=== PATIENT | female | born 1990 | race African-American/Black ===

== ENCOUNTER 2016-12-06 18:47 | Emergency (ER) | payer MEDICAID, OTHER ==
[~2016-12-06] VITALS: Ht 165.1 cm; Wt 62.7 kg
[~2016-12-06 18:47] MED LIST: hydrocodone PO; ibuprofen PO; penicillin PO
[2016-12-06] MEDS ORDERED: PREN-154 PO (18:57)
[2016-12-06 19:23] LABS: BASOPHILS % (AUTO) 0.5 % (0.0-2.0); EOSINOPHILS % (AUTO) 3.3 % (1.0-6.0); HEMATOCRIT 39.6 % (36-46); HEMOGLOBIN 13.4 g/dL (12.0-16.0); LYMPHOCYTES # (AUTO) 2.9 K/uL (1.0-4.8); MEAN CORPUSCULAR HEMOGLOBIN 29.3 pg (26.0-34.0); MEAN CORPUSCULAR HGB CONC 33.8 G/dL (31.0-37.0); MEAN CORPUSCULAR VOLUME 87 fL (80-100); MONOCYTES % (AUTO) 14.9 % (2.0-9.0); NEUTROPHILS # (AUTO) 2.7 K/uL (1.8-7.7); NEUTROPHILS % (AUTO) 39.3 % (40.0-70.0); PLATELET COUNT (AUTO) 166 K/uL (150-450); RED BLOOD CELL COUNT(AUTO) 4.57 MIL/uL (4.00-5.20); RED CELL DISTRIBUTION WIDTH 13.3 % (11.5-14.5); WHITE BLOOD COUNT (AUTO) 6.8 K/uL (4.5-11.0)
[2016-12-06 19:38] LABS: ANION GAP 10 mmol/L (8-16); CARBON DIOXIDE 27 mmol/L (22-29); CHLORIDE 103 mmol/L (98-107); GLOMERULAR FILTR. RATE CALC > 60 mL/min (>60); POTASSIUM 3.8 mmol/L (3.5-5.1); SODIUM SERUM 140 mmol/L (136-145); UREA NITROGEN, BLOOD 5 mg/dL (7-18)
[2016-12-06 19:42] LABS: ALANINE AMINOTRANSFERASE 19 U/L (12-78); ALBUMIN 3.7 g/dL (3.4-5.0); ASPARTATE AMINOTRANSFERASE 18 U/L (15-37); BILIRUBIN,TOTAL 0.2 mg/dL (0.1-1.0); TOTAL PROTEIN, SERUM 7.4 g/dL (6.4-8.2)
[2016-12-06 19:59] LABS: APPEARANCE,URINE CLEAR (CLEAR); GLUCOSE, URINE (UA) NEGATIVE (NEGATIVE); KETONES,URINE TRACE mg/dL (NEGATIVE); LEUKOCYTE ESTERASE ,URINE NEGATIVE (NEGATIVE); OCCULT BLOOD,URINE NEGATIVE (NEGATIVE); PH,URINE 6.5 (5.0-8.0); PROTEIN,URINE NEGATIVE (NEGATIVE)
[2016-12-06 20:00] LABS: ADD UA MICROSCOPIC NO
[2016-12-06 22:56] VITALS: BP 103/67
== END 2016-12-06 23:01 | disposition home or self-care (01) ==
LOC: EMS 18:54
DX: O26.891 Other specified pregnancy related conditions, first trimester (principal); O23.41 Unspecified infection of urinary tract in pregnancy, first trimester; O99.331 Smoking (tobacco) complicating pregnancy, first trimester; J45.909 Unspecified asthma, uncomplicated; Z3A.08 8 weeks gestation of pregnancy
CPT/HCPCS: 76801; 76817; 86901; 99285; 99406

== ENCOUNTER 2016-12-25 13:28 | Emergency (ER) | payer MEDICAID ==
[~2016-12-25] VITALS: Ht 165.1 cm; Wt 57.0 kg
[~2016-12-25 13:28] MED LIST changes: +PREN-154 PO; -hydrocodone PO; -ibuprofen PO; -penicillin PO
[2016-12-25] MEDS ORDERED: ONDANSETRON HCL 4 MG/2 ML VIAL IVP ONE (14:30)
[2016-12-25] MEDS ORDERED: SODIUM CHLORIDE 0.9% 1,000 ML IV ONE (14:30)
[2016-12-25 15:07] LABS: BASOPHILS % (AUTO) 0.2 % (0.0-2.0); EOSINOPHILS % (AUTO) 0.2 % (1.0-6.0); HEMATOCRIT 42.2 % (36-46); HEMOGLOBIN 14.1 g/dL (12.0-16.0); LYMPHOCYTES # (AUTO) 1.7 K/uL (1.0-4.8); LYMPHOCYTES % (AUTO) 36.3 % (22.0-44.0); MEAN CORPUSCULAR HEMOGLOBIN 28.7 pg (26.0-34.0); MEAN CORPUSCULAR HGB CONC 33.5 G/dL (31.0-37.0); MEAN CORPUSCULAR VOLUME 86 fL (80-100); MONOCYTES # (AUTO) 0.5 K/uL (0.1-1.0); MONOCYTES % (AUTO) 10.5 % (2.0-9.0); NEUTROPHILS # (AUTO) 2.5 K/uL (1.8-7.7); NEUTROPHILS % (AUTO) 52.8 % (40.0-70.0); PLATELET COUNT (AUTO) 169 K/uL (150-450); RED BLOOD CELL COUNT(AUTO) 4.92 MIL/uL (4.00-5.20); RED CELL DISTRIBUTION WIDTH 12.8 % (11.5-14.5); WHITE BLOOD COUNT (AUTO) 4.7 K/uL (4.5-11.0)
[2016-12-25 15:29] LABS: ANION GAP 14 mmol/L (8-16); CALCIUM, TOTAL 9.7 mg/dL (8.8-10.5); CARBON DIOXIDE 26 mmol/L (22-29); CHLORIDE 101 mmol/L (98-107); CREATININE 0.85 mg/dL (0.60-1.30); GLOMERULAR FILTR. RATE CALC > 60 mL/min (>60); POTASSIUM 3.3 mmol/L (3.5-5.1); SODIUM SERUM 141 mmol/L (136-145); UREA NITROGEN, BLOOD 8 mg/dL (7-18)
[2016-12-25 15:37] LABS: ALANINE AMINOTRANSFERASE 26 U/L (12-78); ALBUMIN 3.9 g/dL (3.4-5.0); ASPARTATE AMINOTRANSFERASE 24 U/L (15-37); BILIRUBIN,TOTAL 0.4 mg/dL (0.1-1.0); TOTAL PROTEIN, SERUM 8.2 g/dL (6.4-8.2)
[2016-12-25 15:54] LABS: APPEARANCE,URINE CLOUDY (CLEAR); GLUCOSE, URINE (UA) NEGATIVE (NEGATIVE); KETONES,URINE 15 mg/dL (NEGATIVE); LEUKOCYTE ESTERASE ,URINE SMALL (NEGATIVE); OCCULT BLOOD,URINE NEGATIVE (NEGATIVE); PH,URINE 6.5 (5.0-8.0); PROTEIN,URINE SEE CONFIRM (NEGATIVE)
[2016-12-25 15:56] LABS: ADD UA MICROSCOPIC YES
[2016-12-25 15:59] LABS: SULFOSALICYLIC ACID,URINE 3+ (Negative)
[2016-12-25 16:00] LABS: RBC,URINE 0-2 /HPF (0-2); SQUAMOUS EPITHELIAL CELL,UR Many /LPF (None Seen)
[2016-12-25] MEDS ORDERED: ACETAMINOPHEN 500 MG TABLET PO ONE (16:30)
[2016-12-25] MEDS ORDERED: POTASSIUM CHLORIDE 20 MEQ ER TABLET PO ONE (16:30)
[2016-12-25 16:31] VITALS: BP 124/61
== END 2016-12-25 17:02 | disposition home or self-care (01) ==
LOC: EMS 13:30
DX: O21.0 Mild hyperemesis gravidarum (principal); R80.9 Proteinuria, unspecified; E87.6 Hypokalemia; J45.909 Unspecified asthma, uncomplicated; F17.210 Nicotine dependence, cigarettes, uncomplicated; Z3A.08 8 weeks gestation of pregnancy
CPT/HCPCS: 36415; 80053; 81001; 83690; 85025; 87086; 96361; 96374; 99284; J2405; J7030

== ENCOUNTER 2017-03-09 14:12 | Emergency (ER) | payer MEDICAID, OTHER ==
[~2017-03-09] VITALS: Ht 165.1 cm; Wt 63.6 kg
[2017-03-09] MEDS ORDERED: ACETAMINOPHEN 1000 MG/ISO-OSM 100 ML IV ONE (14:45)
[2017-03-09] MEDS ORDERED: SODIUM CHLORIDE 0.9% 1,000 ML IV ONE ×2 (14:45→17:00)
[2017-03-09] MEDS ORDERED: ONDANSETRON HCL 4 MG/2 ML VIAL IVP ONE (14:45)
[2017-03-09 14:49] LABS: BASOPHILS # (AUTO) 0.02 K/uL (0.00-0.20); BASOPHILS % (AUTO) 0.3 % (0.0-2.0); EOSINOPHILS # (AUTO) 0.03 K/uL (0.00-0.70); EOSINOPHILS % (AUTO) 0.51 % (1.0-6.0); HEMATOCRIT 36.3 % (36-46); HEMOGLOBIN 12.1 g/dL (12.0-16.0); LYMPHOCYTES # (AUTO) 2.1 K/uL (1.0-4.8); LYMPHOCYTES % (AUTO) 33.9 % (22.0-44.0); MEAN CORPUSCULAR HEMOGLOBIN 28.4 pg (26.0-34.0); MEAN CORPUSCULAR HGB CONC 33.4 G/dL (31.0-37.0); MEAN CORPUSCULAR VOLUME 85 fL (80-100); MONOCYTES # (AUTO) 0.9 K/uL (0.1-1.0); MONOCYTES % (AUTO) 14.4 % (2.0-9.0); NEUTROPHILS # (AUTO) 3.1 K/uL (1.8-7.7); NEUTROPHILS % (AUTO) 50.9 % (40.0-70.0); PLATELET COUNT (AUTO) 229 K/uL (150-450); RED BLOOD CELL COUNT(AUTO) 4.26 MIL/uL (4.00-5.20); RED CELL DISTRIBUTION WIDTH 13.4 % (11.5-14.5); WHITE BLOOD COUNT (AUTO) 6.1 K/uL (4.5-11.0)
[2017-03-09 15:03] LABS: ANION GAP 8 mmol/L (8-16); CARBON DIOXIDE 26 mmol/L (22-29); CHLORIDE 102 mmol/L (98-107); CREATININE 0.62 mg/dL (0.60-1.30); GLOMERULAR FILTR. RATE CALC > 60 mL/min (>60); POTASSIUM 3.1 mmol/L (3.5-5.1); SODIUM SERUM 136 mmol/L (136-145); UREA NITROGEN, BLOOD 6 mg/dL (7-18)
[2017-03-09 15:09] LABS: ALANINE AMINOTRANSFERASE 17 U/L (12-78); ALBUMIN 3.6 g/dL (3.4-5.0); ASPARTATE AMINOTRANSFERASE 17 U/L (15-37); BILIRUBIN,TOTAL 0.5 mg/dL (0.1-1.0); TOTAL PROTEIN, SERUM 7.7 g/dL (6.4-8.2)
[2017-03-09] MEDS ORDERED: POTASSIUM CHLORIDE 20 MEQ ER TABLET PO ONE (16:00)
[2017-03-09] MEDS ORDERED: POTASSIUM CHLORIDE 10% 40 MEQ/30 ML LIQUID UDCUP PO ONE (16:45)
[2017-03-09] MEDS ORDERED: METOCLOPRAMIDE HCL 5 MG/ML 2 ML VIAL IVP ONE (17:00)
[2017-03-09] MEDS ORDERED: DiphenhydrAMINE HCL 50 MG/ML VIAL IVP ONE (17:00)
[2017-03-09] MEDS ORDERED: DONNATAL/LIDOCAINE/MAALOX 55 ML BOTTLE PO ONE (17:30)
[2017-03-09 17:31] VITALS: BP 107/59
== END 2017-03-09 18:48 | disposition home or self-care (01) ==
LOC: EMS 14:20
DX: O21.9 Vomiting of pregnancy, unspecified (principal); O99.332 Smoking (tobacco) complicating pregnancy, second trimester; O26.892 Other specified pregnancy related conditions, second trimester; E87.6 Hypokalemia; J45.909 Unspecified asthma, uncomplicated; Z3A.19 19 weeks gestation of pregnancy
CPT/HCPCS: 36415; 76805; 80053; 85025; 96361; 96365; 96375; 99285; J0131; J1200; J2405; J2765; J7030; Z7610

== ENCOUNTER 2017-03-24 12:00 | Observation (INO) | payer OTHER ==
[~2017-03-24] VITALS: Ht 165.1 cm; Wt 62.6 kg
[2017-03-24] MEDS ORDERED: PROMETHAZINE HCL 25 MG TABLET PO ONE (12:45)
[2017-03-24] MEDS ORDERED: ONDANSETRON HCL 4 MG TABLET PO ONE (12:45)
[2017-03-24 13:01] LABS: BASOPHILS % (AUTO) 0.5 % (0.0-2.0); EOSINOPHILS % (AUTO) 0.6 % (1.0-6.0); HEMATOCRIT 33.6 % (36-46); HEMOGLOBIN 11.2 g/dL (12.0-16.0); LYMPHOCYTES # (AUTO) 1.9 K/uL (1.0-4.8); LYMPHOCYTES % (AUTO) 30.3 % (22.0-44.0); MEAN CORPUSCULAR HEMOGLOBIN 29.1 pg (26.0-34.0); MEAN CORPUSCULAR HGB CONC 33.4 G/dL (31.0-37.0); MEAN CORPUSCULAR VOLUME 87 fL (80-100); MONOCYTES # (AUTO) 0.7 K/uL (0.1-1.0); MONOCYTES % (AUTO) 10.6 % (2.0-9.0); NEUTROPHILS # (AUTO) 3.7 K/uL (1.8-7.7); RED BLOOD CELL COUNT(AUTO) 3.87 MIL/uL (4.00-5.20); RED CELL DISTRIBUTION WIDTH 14.1 % (11.5-14.5); WHITE BLOOD COUNT (AUTO) 6.4 K/uL (4.5-11.0)
[2017-03-24 13:10] LABS: ANION GAP 12 mmol/L (8-16); CALCIUM, TOTAL 9.2 mg/dL (8.8-10.5); CARBON DIOXIDE 26 mmol/L (22-29); CHLORIDE 100 mmol/L (98-107); CREATININE 0.64 mg/dL (0.60-1.30); GLOMERULAR FILTR. RATE CALC > 60 mL/min (>60); POTASSIUM 3.7 mmol/L (3.5-5.1); SODIUM SERUM 138 mmol/L (136-145); UREA NITROGEN, BLOOD 7 mg/dL (7-18)
[2017-03-24 13:16] LABS: ALANINE AMINOTRANSFERASE 13 U/L (12-78); ALBUMIN 3.3 g/dL (3.4-5.0); ASPARTATE AMINOTRANSFERASE 14 U/L (15-37); BILIRUBIN,TOTAL 0.4 mg/dL (0.1-1.0); TOTAL PROTEIN, SERUM 7.1 g/dL (6.4-8.2)
[2017-03-24 14:20] VITALS: BP 106/71
[2017-03-24] MEDS ORDERED: INFLUENZA VIRUS VACCINE QVS 2017-18 (3YR+)/PF 60 MCG/0.5 ML SYRINGE IM ONE (14:30)
== END 2017-03-24 14:10 | disposition other institution (70) ==
LOC: 4S 12:00
PROVIDERS: ADMIT Obstetrics & Gynecology; ATTEND Obstetrics & Gynecology
DX: O21.0 Mild hyperemesis gravidarum (principal); Z3A.21 21 weeks gestation of pregnancy
CPT/HCPCS: 36415; 59025; 80053; 85025; G0378; Q0162

== ENCOUNTER 2017-04-26 11:35 | Observation (INO) | payer OTHER ==
[~2017-04-26] VITALS: Ht 162.6 cm; Wt 66.2 kg
[2017-04-26 11:56] VITALS: BP 116/70
[2017-04-26] MEDS ORDERED: METO-296 PO (12:00)
[2017-04-26] MEDS ORDERED: ONDANSETRON HCL 4 MG/2 ML VIAL IVP ONE (12:35)
[2017-04-26] MEDS ORDERED: RINGERS SOLUTION,LACTATED 1,000 ML IV ONE ×2 (12:36→12:45)
== END 2017-04-26 16:50 | disposition home or self-care (01) ==
LOC: 4S 11:35
PROVIDERS: ADMIT Obstetrics & Gynecology; ATTEND Obstetrics & Gynecology
DX: O21.2 Late vomiting of pregnancy (principal); O26.892 Other specified pregnancy related conditions, second trimester; R10.30 Lower abdominal pain, unspecified; Z3A.26 26 weeks gestation of pregnancy
CPT/HCPCS: 59025; 96361; 96374; G0378; J2405; J7120

== ENCOUNTER 2017-05-11 17:40 | Observation (INO) | payer SELFPAY ==
[~2017-05-11 17:40] MED LIST changes: +METO-296 PO
[2017-05-11 18:17] VITALS: BP 113/73
[2017-05-11] MEDS ORDERED: RINGERS SOLUTION,LACTATED 1,000 ML IV ONE (19:00)
== END 2017-05-11 19:15 | disposition left against medical advice (07) ==
LOC: 4S 17:40
PROVIDERS: ADMIT Specialist; ATTEND Specialist
DX: O26.893 Other specified pregnancy related conditions, third trimester (principal); R10.30 Lower abdominal pain, unspecified; Z3A.28 28 weeks gestation of pregnancy
CPT/HCPCS: 59025; G0378; J7120

== ENCOUNTER 2017-05-20 12:50 | Observation (INO) | payer SELFPAY ==
[~2017-05-20] VITALS: Ht 162 cm; Wt 68.0 kg
[2017-05-20 12:50] VITALS: BP 118/78
[2017-05-20] MEDS ORDERED: GLYC1TAB PO (13:09)
[2017-05-20] MEDS ORDERED: PYRI50TA9 PO (13:09)
[2017-05-20] MEDS ORDERED: ONDANSETRON HCL 4 MG/2 ML VIAL IVP ONE (13:30)
[2017-05-20] MEDS ORDERED: DEXTROSE 5%-LACTATED RINGERS 1,000 ML IV ONE (13:30)
== END 2017-05-20 14:55 | disposition home or self-care (01) ==
LOC: 4S 12:50
PROVIDERS: ADMIT Specialist; ATTEND Specialist
DX: O21.0 Mild hyperemesis gravidarum (principal); Z3A.29 29 weeks gestation of pregnancy
CPT/HCPCS: 59025; 96361; 96374; G0378; J2405; X7700

== ENCOUNTER 2017-05-22 15:42 | Observation (INO) | payer SELFPAY ==
[~2017-05-22 15:42] MED LIST changes: +GLYC1TAB PO; +PYRI50TA9 PO
[2017-05-22 16:15] VITALS: BP 118/69
[2017-05-22] MEDS ORDERED: METO-296 PO (16:21)
[2017-05-22] MEDS ORDERED: GLYC2TAB21 PO (16:21)
[2017-05-22] MEDS ORDERED: PREN-134 PO (16:21)
[2017-05-22] MEDS ORDERED: PYRI50TA9 PO (16:21)
[2017-05-22] MEDS ORDERED: DOXY25TA PO (16:21)
[2017-05-22] MEDS ORDERED: DEXTROSE 5%-LACTATED RINGERS 1,000 ML IV ONE ×2 (16:45)
[2017-05-22] MEDS ORDERED: ONDANSETRON HCL 4 MG/2 ML VIAL IVP ONE (16:45)
== END 2017-05-22 21:30 | disposition home or self-care (01) ==
LOC: 4S 15:42
PROVIDERS: ADMIT Obstetrics & Gynecology Gynecology; ATTEND Obstetrics & Gynecology Gynecology
DX: O26.893 Other specified pregnancy related conditions, third trimester (principal); R10.9 Unspecified abdominal pain; O21.2 Late vomiting of pregnancy; Z3A.29 29 weeks gestation of pregnancy
CPT/HCPCS: 59025; 96374; G0378; J2405; X7700; 96360; 96361

== ENCOUNTER 2017-06-06 14:06 | Emergency (ER) | payer SELFPAY ==
[~2017-06-06] VITALS: Ht 165.1 cm; Wt 69.5 kg
[~2017-06-06 14:06] MED LIST changes: +DOXY25TA PO; +GLYC2TAB21 PO; +PREN-134 PO
[2017-06-06] MEDS ORDERED: ONDANSETRON HCL 4 MG/2 ML VIAL IVP ONE (14:45)
[2017-06-06] MEDS ORDERED: SODIUM CHLORIDE 0.9% 1,000 ML IV ONE (14:45)
[2017-06-06 15:14] LABS: BASOPHILS % (AUTO) 0.2 % (0.0-2.0); EOSINOPHILS % (AUTO) 0.7 % (1.0-6.0); HEMATOCRIT 29.7 % (36-46); HEMOGLOBIN 10.2 g/dL (12.0-16.0); LYMPHOCYTES # (AUTO) 1.7 K/uL (1.0-4.8); MEAN CORPUSCULAR HGB CONC 34.2 G/dL (31.0-37.0); MEAN CORPUSCULAR VOLUME 82 fL (80-100); MONOCYTES # (AUTO) 0.7 K/uL (0.1-1.0); MONOCYTES % (AUTO) 12.6 % (2.0-9.0); NEUTROPHILS # (AUTO) 3.1 K/uL (1.8-7.7); NEUTROPHILS % (AUTO) 56.5 % (40.0-70.0); PLATELET COUNT (AUTO) 156 K/uL (150-450); RED BLOOD CELL COUNT(AUTO) 3.63 MIL/uL (4.00-5.20); RED CELL DISTRIBUTION WIDTH 11.8 % (11.5-14.5)
[2017-06-06 15:16] LABS: ANION GAP 9 mmol/L (8-16); CARBON DIOXIDE 26 mmol/L (22-29); CHLORIDE 108 mmol/L (98-107); CREATININE 0.58 mg/dL (0.60-1.30); GLOMERULAR FILTR. RATE CALC > 60 mL/min (>60); GLUCOSE,RANDOM 84 mg/dL (70-110); POTASSIUM 3.9 mmol/L (3.5-5.1); SODIUM SERUM 143 mmol/L (136-145); UREA NITROGEN, BLOOD 6 mg/dL (7-18)
[2017-06-06 15:19] LABS: ALANINE AMINOTRANSFERASE 15 U/L (12-78); ALBUMIN 2.6 g/dL (3.4-5.0); ALKALINE PHOSPHATASE 69 U/L (46-116); AMYLASE 117 U/L (25-115); ASPARTATE AMINOTRANSFERASE 17 U/L (15-37); BILIRUBIN,TOTAL 0.3 mg/dL (0.1-1.0); LIPASE 167 U/L (73-393); TOTAL PROTEIN, SERUM 6.1 g/dL (6.4-8.2)
[2017-06-06 17:34] LABS: APPEARANCE,URINE CLOUDY (CLEAR); BILIRUBIN,URINE NEGATIVE (NEGATIVE); GLUCOSE, URINE (UA) NEGATIVE (NEGATIVE); KETONES,URINE NEGATIVE (NEGATIVE); LEUKOCYTE ESTERASE ,URINE NEGATIVE (NEGATIVE); NITRATE,URINE NEGATIVE (NEGATIVE); OCCULT BLOOD,URINE NEGATIVE (NEGATIVE); PROTEIN,URINE TRACE (NEGATIVE)
[2017-06-06 17:53] LABS: AMORPHOUS SEDIMENT,UR Few /LPF (None Seen); BACTERIA,URINE Few /HPF (None Seen); RBC,URINE None Seen /HPF (0-2); SQUAMOUS EPITHELIAL CELL,UR Few /LPF (None Seen); WBC,URINE 0-2 /HPF (0-5)
[2017-06-06 18:00] VITALS: BP 108/73
== END 2017-06-06 18:17 | disposition home or self-care (01) ==
LOC: EMS 14:09
DX: O21.2 Late vomiting of pregnancy (principal); R11.0 Nausea; E86.0 Dehydration; J45.909 Unspecified asthma, uncomplicated; F17.210 Nicotine dependence, cigarettes, uncomplicated; Z3A.34 34 weeks gestation of pregnancy
CPT/HCPCS: 36415; 76805; 80053; 81001; 82150; 83690; 85025; 96360; 99285; J2405; J7030

== ENCOUNTER 2017-11-04 10:55 | Emergency (ER) | payer OTHER ==
[~2017-11-04] VITALS: Ht 165.1 cm; Wt 66.4 kg
[~2017-11-04 10:55] MED LIST changes: -DOXY25TA PO; +DSS100 PO; +FERR-89 PO; -GLYC1TAB PO; -GLYC2TAB21 PO; +IBUP-2070 PO; -METO-296 PO; -PREN-154 PO; -PYRI50TA9 PO
[2017-11-04] MEDS ORDERED: IBUPROFEN 600 MG TABLET PO ONE (11:45)
[2017-11-04] MEDS ORDERED: CYCLOBENZAPRINE HCL 10 MG TABLET PO ONE (11:45)
[2017-11-04 12:30] VITALS: BP 133/89
== END 2017-11-04 12:31 | disposition home or self-care (01) ==
LOC: EMS 10:58
DX: S46.911A Strain of unspecified muscle, fascia and tendon at shoulder and upper arm level, right arm, initial encounter (principal); J45.909 Unspecified asthma, uncomplicated; V49.9XXA Car occupant (driver) (passenger) injured in unspecified traffic accident, initial encounter; Y93.89 Activity, other specified; Y92.89 Other specified places as the place of occurrence of the external cause; Y99.8 Other external cause status
CPT/HCPCS: 99283

== ENCOUNTER 2018-08-27 16:46 | Emergency (ER) | payer OTHER ==
[~2018-08-27] VITALS: Ht 165.1 cm; Wt 66.4 kg
[2018-08-27 18:31] LABS: BASOPHILS % (AUTO) 0.2 % (0.0-2.0); EOSINOPHILS % (AUTO) 0.8 % (1.0-6.0); HEMATOCRIT 33.3 % (36-46); LYMPHOCYTES # (AUTO) 2.3 K/uL (1.0-4.8); LYMPHOCYTES % (AUTO) 34.9 % (22.0-44.0); MEAN CORPUSCULAR HEMOGLOBIN 28.4 pg (26.0-34.0); MEAN CORPUSCULAR VOLUME 86 fL (80-100); MONOCYTES # (AUTO) 0.6 K/uL (0.1-1.0); MONOCYTES % (AUTO) 9.7 % (2.0-9.0); NEUTROPHILS # (AUTO) 3.6 K/uL (1.8-7.7); NEUTROPHILS % (AUTO) 54.4 % (40.0-70.0); PLATELET COUNT (AUTO) 157 K/uL (150-450); RED BLOOD CELL COUNT(AUTO) 3.86 MIL/uL (4.00-5.20); RED CELL DISTRIBUTION WIDTH 13.5 % (11.5-14.5)
[2018-08-27 18:34] LABS: APPEARANCE,URINE CLOUDY (CLEAR); BILIRUBIN,URINE NEGATIVE (NEGATIVE); GLUCOSE, URINE (UA) NEGATIVE (NEGATIVE); KETONES,URINE NEGATIVE (NEGATIVE); LEUKOCYTE ESTERASE ,URINE NEGATIVE (NEGATIVE); NITRATE,URINE NEGATIVE (NEGATIVE); OCCULT BLOOD,URINE NEGATIVE (NEGATIVE); PROTEIN,URINE NEGATIVE (NEGATIVE)
[2018-08-27 18:42] LABS: BACTERIA,URINE Rare /HPF (None Seen); RBC,URINE 0-2 /HPF (0-2); SQUAMOUS EPITHELIAL CELL,UR Few /LPF (None Seen); WBC,URINE 0-2 /HPF (0-5)
[2018-08-27 18:44] LABS: ANION GAP 8 mmol/L (8-16); CALCIUM, TOTAL 9.3 mg/dL (8.8-10.5); CARBON DIOXIDE 26 mmol/L (22-29); CHLORIDE 103 mmol/L (98-107); CREATININE 0.64 mg/dL (0.60-1.30); GLOMERULAR FILTR. RATE CALC > 60 mL/min (>60); GLUCOSE,RANDOM 91 mg/dL (70-110); POTASSIUM 3.8 mmol/L (3.5-5.1); SODIUM SERUM 137 mmol/L (136-145); UREA NITROGEN, BLOOD 6 mg/dL (7-18)
[2018-08-27] MEDS: ONDANSETRON HCL 4 MG/2 ML VIAL IVP ONE (18:48)
[2018-08-27] MEDS: SODIUM CHLORIDE 0.9% 1,000 ML IV ONE (18:49)
[2018-08-27 19:10] LABS: ALANINE AMINOTRANSFERASE 12 U/L (12-78); ALBUMIN 3.4 g/dL (3.4-5.0); ALKALINE PHOSPHATASE 46 U/L (46-116); ASPARTATE AMINOTRANSFERASE 14 U/L (15-37); BILIRUBIN,TOTAL 0.2 mg/dL (0.1-1.0); HCG,QUANTITATIVE 7100 mIU/mL (0-6)
[2018-08-27 19:19] VITALS: BP 105/66
== END 2018-08-27 20:03 | disposition home or self-care (01) ==
LOC: EMS 16:47
DX: O99.612 Diseases of the digestive system complicating pregnancy, second trimester (principal); A08.4 Viral intestinal infection, unspecified; J45.909 Unspecified asthma, uncomplicated; F17.210 Nicotine dependence, cigarettes, uncomplicated; Z3A.20 20 weeks gestation of pregnancy
CPT/HCPCS: 36415; 80053; 81001; 84702; 85025; 96361; 96374; 99283; J2405; J7030

== ENCOUNTER 2018-12-20 15:04 | Observation (INO) | payer OTHER ==
[~2018-12-20] VITALS: Ht 165.1 cm; Wt 75.1 kg
[2018-12-20 15:14] VITALS: BP 110/65
== END 2018-12-20 16:10 | disposition home or self-care (01) ==
LOC: 4S 16:09
PROVIDERS: ADMIT Obstetrics & Gynecology; ATTEND Obstetrics & Gynecology
DX: O26.893 Other specified pregnancy related conditions, third trimester (principal); R10.2 Pelvic and perineal pain; O99.89 Other specified diseases and conditions complicating pregnancy, childbirth and the puerperium; M54.5 Low back pain; Z3A.37 37 weeks gestation of pregnancy
CPT/HCPCS: 81002; G0378

== ENCOUNTER 2019-05-28 12:05 | Emergency (ER) | payer OTHER ==
[~2019-05-28] VITALS: Ht 165.1 cm; Wt 72.7 kg
[2019-05-28] MEDS ORDERED: ACETAMINOPHEN 325 MG TABLET PO ONE (14:00)
[2019-05-28 14:19] LABS: BASOPHILS % (AUTO) 0.2 % (0.0-2.0); EOSINOPHILS % (AUTO) 0.6 % (1.0-6.0); HEMATOCRIT 35.9 % (36-46); LYMPHOCYTES # (AUTO) 2.5 K/uL (1.0-4.8); LYMPHOCYTES % (AUTO) 43.4 % (22.0-44.0); MEAN CORPUSCULAR HEMOGLOBIN 27.9 pg (26.0-34.0); MEAN CORPUSCULAR HGB CONC 33.4 G/dL (31.0-37.0); MEAN CORPUSCULAR VOLUME 84 fL (80-100); MONOCYTES # (AUTO) 0.5 K/uL (0.1-1.0); MONOCYTES % (AUTO) 9.2 % (2.0-9.0); NEUTROPHILS # (AUTO) 2.6 K/uL (1.8-7.7); NEUTROPHILS % (AUTO) 46.6 % (40.0-70.0); PLATELET COUNT (AUTO) 182 K/uL (150-450); RED CELL DISTRIBUTION WIDTH 13.9 % (11.5-14.5)
[2019-05-28 14:28] LABS: ANION GAP 10 mmol/L (8-16); CALCIUM, TOTAL 8.9 mg/dL (8.8-10.5); CARBON DIOXIDE 25 mmol/L (22-29); CHLORIDE 104 mmol/L (98-107); CREATININE 0.64 mg/dL (0.60-1.30); GLOMERULAR FILTR. RATE CALC > 60 mL/min (>60); GLUCOSE,RANDOM 76 mg/dL (70-110); POTASSIUM 3.5 mmol/L (3.5-5.1); SODIUM SERUM 139 mmol/L (136-145); UREA NITROGEN, BLOOD 5 mg/dL (7-18)
[2019-05-28 15:49] VITALS: BP 140/73
== END 2019-05-28 16:15 | disposition home or self-care (01) ==
LOC: EMS 12:06
DX: Z32.01 Encounter for pregnancy test, result positive (principal); K11.8 Other diseases of salivary glands; R03.0 Elevated blood-pressure reading, without diagnosis of hypertension; J45.909 Unspecified asthma, uncomplicated; F17.210 Nicotine dependence, cigarettes, uncomplicated

== ENCOUNTER 2020-02-02 11:33 | Emergency (ER) | payer OTHER ==
[~2020-02-02] VITALS: Ht 167.6 cm; Wt 72.7 kg
[2020-02-02] MEDS ORDERED: ACETAMINOPHEN 500 MG TABLET PO ONE (13:00)
[2020-02-02] MEDS ORDERED: KETOROLAC TROMETHAMINE 60 MG/2 ML VIAL IM ONE (13:00)
[2020-02-02 13:32] LABS: COVID AG,FIA SOURCE NASOPHARYNGEAL
[2020-02-02 15:00] VITALS: BP 128/80
== END 2020-02-02 15:21 | disposition home or self-care (01) ==
LOC: EMS 11:38
DX: R51.9 Headache, unspecified (principal); Z20.828 Contact with and (suspected) exposure to other viral communicable diseases
CPT/HCPCS: 81025; 87426; 96372; 99283; J1885

== ENCOUNTER 2020-02-08 10:49 | Emergency (ER) | payer OTHER ==
[~2020-02-08] VITALS: Ht 167.6 cm; Wt 72.7 kg
[2020-02-08] MEDS ORDERED: KETOROLAC TROMETHAMINE 30 MG/ML VIAL IM ONE (11:45)
[2020-02-08 12:51] VITALS: BP 123/71
== END 2020-02-08 12:55 | disposition home or self-care (01) ==
LOC: EMS 10:54
DX: G44.209 Tension-type headache, unspecified, not intractable (principal); M62.838 Other muscle spasm; J45.909 Unspecified asthma, uncomplicated; Z56.3 Stressful work schedule; Z87.891 Personal history of nicotine dependence
CPT/HCPCS: 96372; 99283; J1885

== ENCOUNTER 2020-03-08 12:10 | Emergency (ER) | payer OTHER ==
[~2020-03-08] VITALS: Ht 167.6 cm; Wt 61.4 kg
[2020-03-08 15:04] LABS: COVID AG,FIA SOURCE NASAL SWAB
[2020-03-08] MEDS ORDERED: AZITHROMYCIN 500 MG TABLET PO ONE (15:30)
[2020-03-08] MEDS: CefTRIAXone SODIUM 1 GM/VIAL IM ONE ×2 (15:44→15:48)
[2020-03-08] MEDS: LIDOCAINE/PF 1% 2 ML VIAL IM ONE ×2 (15:45→15:48)
[2020-03-08 16:24] VITALS: BP 124/75
== END 2020-03-08 16:36 | disposition home or self-care (01) ==
LOC: EMS 12:10
DX: J40 Bronchitis, not specified as acute or chronic (principal); F17.210 Nicotine dependence, cigarettes, uncomplicated; Z20.828 Contact with and (suspected) exposure to other viral communicable diseases
CPT/HCPCS: 87426; 96372; 99283; J0696; J3490

== ENCOUNTER 2020-11-20 00:29 | Inpatient (IN) | payer MEDICAID, OTHER ==
[~2020-11-20] VITALS: Ht 166.4 cm; Wt 68.7 kg
[2020-11-20] MEDS ORDERED: 0.9% SODIUM CHLORIDE 10 ML SYRINGE IVP PRN (02:00)
[2020-11-20 02:27] LABS: INR 1.1 (0.9-1.1); PROTHROMBIN TIME 11.4 SEC (9.4-11.6)
[2020-11-20 02:30] LABS: ACETAMINOPHEN < 2 mcg/mL (10-30)
[2020-11-20 02:36] LABS: LACTIC ACID 3.5 mmol/L (0.4-2.0); SALICYLATE 0.8 mg/dL (2.8-20.0)
[2020-11-20] MEDS ORDERED: SODIUM CHLORIDE 0.9% 2,000 ML IV ONE (02:45)
[2020-11-20 06:20] LABS: BASOPHILS % (AUTO) 0.4 % (0.0-2.0); EOSINOPHILS % (AUTO) 0.1 % (1.0-6.0); HEMATOCRIT 41.4 % (36-46); LYMPHOCYTES # (AUTO) 2.3 K/uL (1.0-4.8); LYMPHOCYTES % (AUTO) 31.3 % (22.0-44.0); MEAN CORPUSCULAR HEMOGLOBIN 28.6 pg (26.0-34.0); MEAN CORPUSCULAR HGB CONC 33.7 G/dL (31.0-37.0); MEAN CORPUSCULAR VOLUME 85 fL (80-100); MONOCYTES # (AUTO) 0.7 K/uL (0.1-1.0); MONOCYTES % (AUTO) 9.1 % (2.0-9.0); NEUTROPHILS # (AUTO) 4.4 K/uL (1.8-7.7); NEUTROPHILS % (AUTO) 59.1 % (40.0-70.0); PLATELET COUNT (AUTO) 201 K/uL (150-450); RED BLOOD CELL COUNT(AUTO) 4.88 MIL/uL (4.00-5.20)
[2020-11-20] MEDS ORDERED: HALOPERIDOL 5 MG TABLET PO PRN (06:30)
[2020-11-20 06:34] LABS: ANION GAP 13 mmol/L (8-16); CARBON DIOXIDE 24 mmol/L (22-29); CHLORIDE 100 mmol/L (98-107); CREATININE 0.88 mg/dL (0.60-1.30); GLOMERULAR FILTR. RATE CALC > 60 mL/min (>60); GLUCOSE,RANDOM 92 mg/dL (70-110); POTASSIUM 4.5 mmol/L (3.5-5.1); SODIUM SERUM 137 mmol/L (136-145); UREA NITROGEN, BLOOD 8 mg/dL (7-18)
[2020-11-20 06:39] LABS: ALANINE AMINOTRANSFERASE 27 U/L (12-78); ALBUMIN 4.2 g/dL (3.4-5.0); ALKALINE PHOSPHATASE 65 U/L (46-116); ASPARTATE AMINOTRANSFERASE 30 U/L (15-37); BILIRUBIN,TOTAL 0.4 mg/dL (0.1-1.0); TOTAL PROTEIN, SERUM 8.1 g/dL (6.4-8.2)
[2020-11-20] MEDS ORDERED: SODIUM CHLORIDE 0.9% 1,000 ML IV ONE (06:45)
[2020-11-20 07:21] LABS: COVID AG,FIA SOURCE NASOPHARYNGEAL
[2020-11-20 07:32] LABS: APPEARANCE,URINE CLOUDY (CLEAR); BILIRUBIN,URINE NEGATIVE (NEGATIVE); GLUCOSE, URINE (UA) NEGATIVE (NEGATIVE); KETONES,URINE 15 mg/dL (NEGATIVE); LEUKOCYTE ESTERASE ,URINE NEGATIVE (NEGATIVE); NITRATE,URINE NEGATIVE (NEGATIVE); OCCULT BLOOD,URINE NEGATIVE (NEGATIVE); PROTEIN,URINE POS 1+ (NEGATIVE)
[2020-11-20 07:38] LABS: AMPHET/METH SCREEN,URINE NEGATIVE (NEGATIVE); BARBITURATE SCREEN, URINE NEGATIVE (NEGATIVE); BENZODIAZEPINES SCREEN,URINE POSITIVE (NEGATIVE); CANNABINOID SCREEN,URINE NEGATIVE (NEGATIVE); COCAINE SCREEN,URINE NEGATIVE (NEGATIVE); METHADONE SCREEN, URINE NEGATIVE (NEGATIVE); OPIATE SCREEN,URINE NEGATIVE (NEGATIVE)
[2020-11-20 07:43] LABS: PHENCYCLIDINE SCREEN,URINE NEGATIVE (NEGATIVE)
[2020-11-20 07:45] LABS: BACTERIA,URINE None Seen /HPF (None Seen); RBC,URINE None Seen /HPF (0-2); SQUAMOUS EPITHELIAL CELL,UR Few /LPF (None Seen); WBC,URINE 0-2 /HPF (0-5)
[2020-11-21] VITALS (9 sets, daily range): BP systolic 108–128; BP diastolic 58–83
[2020-11-21] MEDS: ZOLPIDEM TARTRATE 10 MG TABLET PO PRN (01:37)
[2020-11-21] MEDS ORDERED: DOCUSATE SODIUM 100 MG CAPSULE PO PRN (07:15)
[2020-11-21] MEDS ORDERED: MAGNESIUM HYDROXIDE SUSPENSION 30 ML UDCUP PO PRN (07:15)
[2020-11-21] MEDS ORDERED: GuaiFENesin/D-METHORPHAN [SUGAR-FREE] 200-20MG/10 ML SYRUP UDCUP PO PRN (07:15)
[2020-11-21] MEDS ORDERED: ACETAMINOPHEN 325 MG TABLET PO PRN (07:15)
[2020-11-21] MEDS ORDERED: ALBUTEROL SULFATE HFA 90 MCG/PUFF 8 GM INHALER IH PRN (07:15)
[2020-11-21] MEDS ORDERED: IBUPROFEN 400 MG TABLET PO PRN (07:15)
[2020-11-21] MEDS ORDERED: ONDANSETRON HCL 4 MG TABLET PO PRN (07:15)
[2020-11-21] MEDS ORDERED: CloNIDine HCL 0.1 MG TABLET PO PRN (07:15)
[2020-11-21] MEDS ORDERED: MAG HYDROX/AL HYDROX/SIMETH ES 30 ML SUSPENSION UDCUP PO PRN (07:15)
[2020-11-21] MEDS ORDERED: PETROLATUM,WHITE 28 GM JELLY TP PRN (07:15)
[2020-11-21] MEDS ORDERED: LOPERAMIDE HCL 2 MG CAPSULE PO PRN (07:15)
[2020-11-21] MEDS: THIAMINE 100 MG TABLET PO SCH ×2 (10:00→16:36)
[2020-11-21] MEDS ORDERED: CYANOCOBALAMIN 1,000 MCG/ML VIAL IM ONE (10:00)
[2020-11-21] MEDS ORDERED: LORazepam 2 MG TABLET PO PRN (10:00)
[2020-11-21] MEDS: MULTIVITAMINS WITH MINERALS, THERAPEUTIC TABLET PO SCH (10:00)
[2020-11-21] MEDS: FOLIC ACID 1 MG TABLET PO SCH (10:00)
[2020-11-22] MEDS ORDERED: LORazepam 2 MG TABLET PO PRN (07:00)
[2020-11-22] MEDS: FOLIC ACID 1 MG TABLET PO SCH (08:14)
[2020-11-22] MEDS: MULTIVITAMINS WITH MINERALS, THERAPEUTIC TABLET PO SCH (08:14)
[2020-11-22] MEDS: THIAMINE 100 MG TABLET PO SCH ×2 (08:14→16:30)
[2020-11-22] MEDS: LORazepam 2 MG TABLET PO SCH ×4 (08:14→21:46)
[2020-11-22 08:28] VITALS: BP 137/80
[2020-11-22 10:00] VITALS: BP 112/83
[2020-11-22 12:43] VITALS: BP 112/83
[2020-11-22] MEDS: BuPROPion HCL XL 150 MG ER TABLET PO SCH (14:08)
[2020-11-22 16:40] VITALS: BP 114/85
[2020-11-22 16:44] VITALS: BP 114/85
[2020-11-23 08:00] VITALS: BP 106/69
[2020-11-23] MEDS: LORazepam 2 MG TABLET PO SCH ×3 (10:00→21:04)
[2020-11-23] MEDS: THIAMINE 100 MG TABLET PO SCH ×2 (10:00→17:05)
[2020-11-23] MEDS: BuPROPion HCL XL 150 MG ER TABLET PO SCH (10:00)
[2020-11-23] MEDS: MULTIVITAMINS WITH MINERALS, THERAPEUTIC TABLET PO SCH (10:00)
[2020-11-23] MEDS: FOLIC ACID 1 MG TABLET PO SCH (10:01)
[2020-11-23 16:00] VITALS: BP 108/66
[2020-11-23] MEDS: OLANZapine 5 MG TABLET PO SCH (17:04)
[2020-11-24 05:15] VITALS: BP 103/61
[2020-11-24] MEDS ORDERED: LORazepam 1 MG TABLET PO PRN (07:00)
[2020-11-24 08:33] VITALS: BP 118/76
[2020-11-24] MEDS: THIAMINE 100 MG TABLET PO SCH ×2 (08:33→17:04)
[2020-11-24] MEDS: LORazepam 1 MG TABLET PO SCH ×4 (08:33→21:19)
[2020-11-24] MEDS: FOLIC ACID 1 MG TABLET PO SCH (08:33)
[2020-11-24] MEDS: MULTIVITAMINS WITH MINERALS, THERAPEUTIC TABLET PO SCH (08:33)
[2020-11-24] MEDS: BuPROPion HCL XL 150 MG ER TABLET PO SCH (08:33)
[2020-11-24] MEDS: OLANZapine 5 MG TABLET PO SCH ×2 (08:33→17:04)
[2020-11-24 08:35] VITALS: BP 118/76
[2020-11-24] MEDS: NICOTINE 14 MG/24 HOUR PATCH TD PRN (08:37)
[2020-11-24 17:10] VITALS: BP 146/71
[2020-11-24 17:25] VITALS: BP 146/71
[2020-11-25 05:32] VITALS: BP 99/60
[2020-11-25] MEDS ORDERED: LORazepam 1 MG TABLET PO PRN (07:00)
[2020-11-25 08:00] VITALS: BP 98/57
[2020-11-25 08:53] VITALS: BP 98/57
[2020-11-25] MEDS: THIAMINE 100 MG TABLET PO SCH ×2 (09:46→16:19)
[2020-11-25] MEDS: OLANZapine 5 MG TABLET PO SCH ×2 (09:46→16:19)
[2020-11-25] MEDS: MULTIVITAMINS WITH MINERALS, THERAPEUTIC TABLET PO SCH (09:46)
[2020-11-25] MEDS: FOLIC ACID 1 MG TABLET PO SCH (09:47)
[2020-11-25] MEDS: BuPROPion HCL XL 150 MG ER TABLET PO SCH (09:52)
[2020-11-25 16:05] VITALS: BP 121/83
[2020-11-26 04:21] VITALS: BP 107/62
[2020-11-26 08:00] VITALS: BP 93/58
[2020-11-26] MEDS ORDERED: BuPROPion HCL XL 150 MG ER TABLET PO SCH (09:00)
[2020-11-26] MEDS: BuPROPion HCL XL 150 MG ER TABLET PO SCH (09:57)
[2020-11-26] MEDS: MULTIVITAMINS WITH MINERALS, THERAPEUTIC TABLET PO SCH (09:57)
[2020-11-26] MEDS: THIAMINE 100 MG TABLET PO SCH ×2 (09:57→17:13)
[2020-11-26] MEDS: FOLIC ACID 1 MG TABLET PO SCH (09:57)
[2020-11-26] MEDS: OLANZapine 5 MG TABLET PO SCH ×2 (09:57→17:13)
[2020-11-26 16:24] VITALS: BP 127/75
[2020-11-26] MEDS: NICOTINE 14 MG/24 HOUR PATCH TD PRN (17:51)
[2020-11-27] MEDS: ZOLPIDEM TARTRATE 10 MG TABLET PO PRN (00:15)
[2020-11-27 00:16] VITALS: BP 109/65
[2020-11-27 03:38] VITALS: BP 109/72
[2020-11-27] MEDS: LORazepam 2 MG TABLET PO PRN (03:38)
[2020-11-27 08:49] VITALS: BP 109/68
[2020-11-27] MEDS: THIAMINE 100 MG TABLET PO SCH ×2 (09:25→16:59)
[2020-11-27] MEDS: MULTIVITAMINS WITH MINERALS, THERAPEUTIC TABLET PO SCH (09:25)
[2020-11-27] MEDS: OLANZapine 5 MG TABLET PO SCH ×2 (09:25→16:59)
[2020-11-27] MEDS: FOLIC ACID 1 MG TABLET PO SCH (09:25)
[2020-11-27] MEDS: BuPROPion HCL XL 150 MG ER TABLET PO SCH (09:25)
[2020-11-27 16:02] VITALS: BP 130/72
[2020-11-28] MEDS: LORazepam 2 MG TABLET PO PRN (05:44)
[2020-11-28] MEDS: FOLIC ACID 1 MG TABLET PO SCH (08:30)
[2020-11-28] MEDS: MULTIVITAMINS WITH MINERALS, THERAPEUTIC TABLET PO SCH (08:30)
[2020-11-28] MEDS: THIAMINE 100 MG TABLET PO SCH ×2 (08:30→17:03)
[2020-11-28] MEDS: BuPROPion HCL XL 150 MG ER TABLET PO SCH (08:31)
[2020-11-28] MEDS: OLANZapine 5 MG TABLET PO SCH ×2 (08:31→17:03)
[2020-11-28 09:11] VITALS: BP 108/66
[2020-11-28] MEDS: NICOTINE 14 MG/24 HOUR PATCH TD PRN (18:03)
[2020-11-28 19:21] VITALS: BP 110/70
[2020-11-28] MEDS: ZOLPIDEM TARTRATE 10 MG TABLET PO PRN (21:43)
[2020-11-29] MEDS: BuPROPion HCL XL 150 MG ER TABLET PO SCH (08:57)
[2020-11-29] MEDS: OLANZapine 5 MG TABLET PO SCH ×2 (08:57→16:05)
[2020-11-29] MEDS: THIAMINE 100 MG TABLET PO SCH ×2 (08:57→16:05)
[2020-11-29] MEDS: FOLIC ACID 1 MG TABLET PO SCH (08:57)
[2020-11-29] MEDS: MULTIVITAMINS WITH MINERALS, THERAPEUTIC TABLET PO SCH (08:57)
[2020-11-29 09:52] VITALS: BP 106/64
[2020-11-29] MEDS ORDERED: MULT-1239 PO (16:35)
[2020-11-29] MEDS ORDERED: THIA100T80 PO (16:35)
[2020-11-29] MEDS ORDERED: BUPR-93 PO (16:35)
[2020-11-29] MEDS ORDERED: OLAN5TAB52 PO (16:35)
[2020-11-29] MEDS ORDERED: FOLI-130 PO (16:36)
== END 2020-11-29 16:55 | disposition home or self-care (01) | DRG 750 ==
LOC: EMS 00:29 → 3EI 06:27
PROVIDERS: ADMIT Psychiatry & Neurology Psychiatry; ATTEND Psychiatry & Neurology Psychiatry
DX: F20.9 Schizophrenia, unspecified (principal); D64.9 Anemia, unspecified; F10.229 Alcohol dependence with intoxication, unspecified; F17.200 Nicotine dependence, unspecified, uncomplicated; F32.9 Major depressive disorder, single episode, unspecified; F41.1 Generalized anxiety disorder; J45.909 Unspecified asthma, uncomplicated; R62.7 Adult failure to thrive; Z20.822 Contact with and (suspected) exposure to COVID-19
CPT/HCPCS: 80053; 81001; 81003; 83605; 85025; 85610; 93005; 99285; G0480; G0481; J3420; J7030

== ENCOUNTER 2020-11-29 18:30 | Emergency (ER) | payer MEDICAID, OTHER ==
[~2020-11-29] VITALS: Ht 165.1 cm; Wt 77.3 kg
[~2020-11-29 18:30] MED LIST changes: +BUPR-93 PO; -DSS100 PO; -FERR-89 PO; +FOLI-130 PO; -IBUP-2070 PO; +MULT-1239 PO; +OLAN5TAB52 PO; -PREN-134 PO; +THIA100T80 PO
[2020-11-29 20:47] VITALS: BP 112/68
== END 2020-11-29 21:01 | disposition home or self-care (01) ==
LOC: EMS 18:30
DX: F20.9 Schizophrenia, unspecified (principal); Z79.899 Other long term (current) drug therapy
CPT/HCPCS: 99284; Z7502

== ENCOUNTER 2020-12-03 15:11 | Inpatient (IN) | payer MEDICAID ==
[~2020-12-03] VITALS: Ht 165.1 cm; Wt 72.6 kg
[2020-12-04 03:09] VITALS: BP 124/64
[2020-12-04] MEDS ORDERED: FOLI0.4T6 PO (05:30)
[2020-12-04] MEDS ORDERED: OLAN5TAB52 PO (05:30)
[2020-12-04] MEDS ORDERED: THIA100T80 PO (05:30)
[2020-12-04] MEDS ORDERED: BUPR-93 PO (05:30)
[2020-12-04] MEDS ORDERED: MULT-711 PO (05:30)
[2020-12-04] MEDS ORDERED: DOCUSATE SODIUM 100 MG CAPSULE PO PRN (08:45)
[2020-12-04] MEDS ORDERED: NICOTINE 14 MG/24 HOUR PATCH TD PRN (08:45)
[2020-12-04] MEDS ORDERED: ONDANSETRON HCL 4 MG TABLET PO PRN (08:45)
[2020-12-04] MEDS ORDERED: MAG HYDROX/AL HYDROX/SIMETH ES 30 ML SUSPENSION UDCUP PO PRN (08:45)
[2020-12-04] MEDS ORDERED: PETROLATUM,WHITE 28 GM JELLY TP PRN (08:45)
[2020-12-04] MEDS ORDERED: MAGNESIUM HYDROXIDE SUSPENSION 30 ML UDCUP PO PRN (08:45)
[2020-12-04] MEDS ORDERED: CloNIDine HCL 0.1 MG TABLET PO PRN (08:45)
[2020-12-04] MEDS ORDERED: GuaiFENesin/D-METHORPHAN [SUGAR-FREE] 200-20MG/10 ML SYRUP UDCUP PO PRN (08:45)
[2020-12-04] MEDS ORDERED: ALBUTEROL SULFATE HFA 90 MCG/PUFF 8 GM INHALER IH PRN (08:45)
[2020-12-04] MEDS ORDERED: LOPERAMIDE HCL 2 MG CAPSULE PO PRN (08:45)
[2020-12-04 08:49] VITALS: BP 95/61
[2020-12-04] MEDS: LORazepam 2 MG TABLET PO PRN ×2 (09:14→16:19)
[2020-12-04] MEDS: FOLIC ACID 0.4 MG TABLET PO SCH (10:15)
[2020-12-04] MEDS: THIAMINE 100 MG TABLET PO SCH ×2 (10:33→16:19)
[2020-12-04] MEDS: MULTIVITAMINS, THERAPEUTIC TABLET PO SCH (10:33)
[2020-12-04] MEDS: OLANZapine 5 MG TABLET PO SCH ×2 (10:34→16:19)
[2020-12-04] MEDS: BuPROPion HCL XL 150 MG ER TABLET PO SCH (10:34)
[2020-12-04 16:45] VITALS: BP 108/62
[2020-12-04] MEDS ORDERED: SERT-158 PO (17:36)
[2020-12-05 01:52] VITALS: BP 102/72
[2020-12-05] MEDS: ZOLPIDEM TARTRATE 10 MG TABLET PO PRN ×2 (02:04→21:15)
[2020-12-05 07:40] LABS: BASOPHILS % (AUTO) 0.7 % (0.0-2.0); EOSINOPHILS % (AUTO) 2.7 % (1.0-6.0); HEMATOCRIT 34.4 % (36-46); HEMOGLOBIN 11.3 g/dL (12.0-16.0); LYMPHOCYTES # (AUTO) 2.5 K/uL (1.0-4.8); LYMPHOCYTES % (AUTO) 58.4 % (22.0-44.0); MEAN CORPUSCULAR HEMOGLOBIN 28.5 pg (26.0-34.0); MEAN CORPUSCULAR HGB CONC 32.9 G/dL (31.0-37.0); MEAN CORPUSCULAR VOLUME 87 fL (80-100); MONOCYTES # (AUTO) 0.4 K/uL (0.1-1.0); MONOCYTES % (AUTO) 9.3 % (2.0-9.0); NEUTROPHILS # (AUTO) 1.2 K/uL (1.8-7.7); NEUTROPHILS % (AUTO) 28.9 % (40.0-70.0); PLATELET COUNT (AUTO) 184 K/uL (150-450); RED BLOOD CELL COUNT(AUTO) 3.97 MIL/uL (4.00-5.20); RED CELL DISTRIBUTION WIDTH 13.2 % (11.5-14.5)
[2020-12-05 08:01] LABS: ANION GAP 6 mmol/L (8-16); CARBON DIOXIDE 27 mmol/L (22-29); CHLORIDE 105 mmol/L (98-107); GLUCOSE,RANDOM 87 mg/dL (70-110); SODIUM SERUM 138 mmol/L (136-145); UREA NITROGEN, BLOOD 7 mg/dL (7-18)
[2020-12-05 08:02] LABS: ALANINE AMINOTRANSFERASE 58 U/L (12-78); ALBUMIN 3.3 g/dL (3.4-5.0); ALKALINE PHOSPHATASE 41 U/L (46-116); ASPARTATE AMINOTRANSFERASE 42 U/L (15-37); BILIRUBIN,TOTAL 0.4 mg/dL (0.1-1.0); CALCIUM, TOTAL 8.3 mg/dL (8.8-10.5); FREE T4 (FREE THYROXINE) 0.98 ng/dL (0.76-1.46); GLOMERULAR FILTR. RATE CALC > 60 mL/min (>60); THYROID STIMULATING HORMONE 0.13 uIU/mL (0.36-3.74); TOTAL PROTEIN, SERUM 6.6 g/dL (6.4-8.2)
[2020-12-05 08:47] VITALS: BP 110/69
[2020-12-05] MEDS: FOLIC ACID 0.4 MG TABLET PO SCH (08:49)
[2020-12-05] MEDS: BuPROPion HCL XL 150 MG ER TABLET PO SCH (08:50)
[2020-12-05] MEDS: OLANZapine 7.5 MG TABLET PO SCH ×2 (08:50→17:11)
[2020-12-05] MEDS: MULTIVITAMINS, THERAPEUTIC TABLET PO SCH (08:50)
[2020-12-05] MEDS: THIAMINE 100 MG TABLET PO SCH ×2 (08:50→17:11)
[2020-12-05] MEDS: LORazepam 2 MG TABLET PO PRN ×2 (08:50→17:11)
[2020-12-05 16:22] VITALS: BP 104/63
[2020-12-06 01:19] VITALS: BP 109/68
[2020-12-06] MEDS: LORazepam 2 MG TABLET PO PRN (02:37)
[2020-12-06 08:27] VITALS: BP 113/72
[2020-12-06] MEDS: FOLIC ACID 0.4 MG TABLET PO SCH (08:29)
[2020-12-06] MEDS: OLANZapine 7.5 MG TABLET PO SCH ×2 (08:29→16:55)
[2020-12-06] MEDS: BuPROPion HCL XL 150 MG ER TABLET PO SCH (08:29)
[2020-12-06] MEDS: THIAMINE 100 MG TABLET PO SCH ×2 (08:29→16:56)
[2020-12-06] MEDS: MULTIVITAMINS, THERAPEUTIC TABLET PO SCH (08:29)
[2020-12-06 16:20] VITALS: BP 119/75
[2020-12-06] MEDS: ZOLPIDEM TARTRATE 10 MG TABLET PO PRN (21:02)
[2020-12-07 00:25] VITALS: BP 100/60
[2020-12-07] MEDS: MULTIVITAMINS, THERAPEUTIC TABLET PO SCH (08:59)
[2020-12-07] MEDS: FOLIC ACID 0.4 MG TABLET PO SCH (08:59)
[2020-12-07] MEDS: OLANZapine 7.5 MG TABLET PO SCH ×2 (08:59→16:59)
[2020-12-07] MEDS: THIAMINE 100 MG TABLET PO SCH ×2 (08:59→16:58)
[2020-12-07] MEDS: BuPROPion HCL XL 150 MG ER TABLET PO SCH (08:59)
[2020-12-07] MEDS: LORazepam 2 MG TABLET PO PRN ×2 (12:38→18:50)
[2020-12-07 16:16] VITALS: BP 108/63
[2020-12-07] MEDS: ZOLPIDEM TARTRATE 10 MG TABLET PO PRN (21:49)
[2020-12-08 00:46] VITALS: BP 109/68
[2020-12-08] MEDS: BuPROPion HCL XL 150 MG ER TABLET PO SCH (08:32)
[2020-12-08] MEDS: OLANZapine 7.5 MG TABLET PO SCH ×2 (08:32→17:04)
[2020-12-08] MEDS: LORazepam 2 MG TABLET PO PRN ×2 (08:32→12:33)
[2020-12-08] MEDS: MULTIVITAMINS, THERAPEUTIC TABLET PO SCH (08:32)
[2020-12-08] MEDS: THIAMINE 100 MG TABLET PO SCH ×2 (08:32→17:04)
[2020-12-08] MEDS: FOLIC ACID 0.4 MG TABLET PO SCH (08:32)
[2020-12-08 08:44] VITALS: BP 125/76
[2020-12-08 16:35] VITALS: BP 111/90
[2020-12-08] MEDS: IBUPROFEN 400 MG TABLET PO PRN (19:42)
[2020-12-08] MEDS: ZOLPIDEM TARTRATE 10 MG TABLET PO PRN (21:13)
[2020-12-09 01:42] VITALS: BP 102/64
[2020-12-09 08:22] VITALS: BP 107/72
[2020-12-09] MEDS: FOLIC ACID 0.4 MG TABLET PO SCH (08:35)
[2020-12-09] MEDS: THIAMINE 100 MG TABLET PO SCH ×2 (08:35→16:50)
[2020-12-09] MEDS: OLANZapine 7.5 MG TABLET PO SCH ×2 (08:36→16:50)
[2020-12-09] MEDS: MULTIVITAMINS, THERAPEUTIC TABLET PO SCH (08:36)
[2020-12-09] MEDS: LORazepam 2 MG TABLET PO PRN (08:36)
[2020-12-09] MEDS: BuPROPion HCL XL 150 MG ER TABLET PO SCH (08:36)
[2020-12-09] MEDS: IBUPROFEN 400 MG TABLET PO PRN ×2 (11:09→20:43)
[2020-12-09 16:09] VITALS: BP 106/62
[2020-12-09] MEDS: ZOLPIDEM TARTRATE 10 MG TABLET PO PRN (20:23)
[2020-12-09 20:43] VITALS: BP 112/70
[2020-12-10 00:32] VITALS: BP 120/62
[2020-12-10] MEDS: BuPROPion HCL XL 150 MG ER TABLET PO SCH (08:03)
[2020-12-10] MEDS: MULTIVITAMINS, THERAPEUTIC TABLET PO SCH (08:03)
[2020-12-10] MEDS: OLANZapine 7.5 MG TABLET PO SCH ×2 (08:03→16:10)
[2020-12-10] MEDS: LORazepam 2 MG TABLET PO PRN (08:03)
[2020-12-10] MEDS: THIAMINE 100 MG TABLET PO SCH ×2 (08:03→16:10)
[2020-12-10] MEDS: FOLIC ACID 0.4 MG TABLET PO SCH (08:04)
[2020-12-10 08:18] VITALS: BP 129/83
[2020-12-10] MEDS: IBUPROFEN 400 MG TABLET PO PRN ×2 (10:58→18:26)
[2020-12-10 16:22] VITALS: BP 116/68
[2020-12-10] MEDS: ZOLPIDEM TARTRATE 10 MG TABLET PO PRN (20:15)
[2020-12-11 05:28] VITALS: BP 110/62
[2020-12-11 06:06] VITALS: BP 112/65
[2020-12-11] MEDS: IBUPROFEN 400 MG TABLET PO PRN ×2 (06:06→14:07)
[2020-12-11] MEDS: THIAMINE 100 MG TABLET PO SCH ×2 (08:12→16:55)
[2020-12-11] MEDS: MULTIVITAMINS, THERAPEUTIC TABLET PO SCH (08:12)
[2020-12-11] MEDS: BuPROPion HCL XL 150 MG ER TABLET PO SCH (08:12)
[2020-12-11] MEDS: OLANZapine 7.5 MG TABLET PO SCH ×2 (08:12→16:55)
[2020-12-11] MEDS: FOLIC ACID 0.4 MG TABLET PO SCH (08:15)
[2020-12-11 08:24] LABS: ANION GAP 8 mmol/L (8-16); CALCIUM, TOTAL 8.9 mg/dL (8.8-10.5); CARBON DIOXIDE 28 mmol/L (22-29); CHLORIDE 105 mmol/L (98-107); CREATININE 0.65 mg/dL (0.60-1.30); GLOMERULAR FILTR. RATE CALC > 60 mL/min (>60); GLUCOSE,RANDOM 135 mg/dL (70-110); POTASSIUM 4.1 mmol/L (3.5-5.1); SODIUM SERUM 141 mmol/L (136-145); UREA NITROGEN, BLOOD 5 mg/dL (7-18)
[2020-12-11 08:26] VITALS: BP 103/62
[2020-12-11] MEDS: ACETAMINOPHEN 325 MG TABLET PO PRN (11:43)
[2020-12-11] MEDS: METHYL SALICYLATE/MENTHOL 85 GM CREAM TP PRN (14:07)
[2020-12-11 16:17] VITALS: BP 113/65
[2020-12-11] MEDS: LORazepam 2 MG TABLET PO PRN (16:55)
[2020-12-11] MEDS: ZOLPIDEM TARTRATE 10 MG TABLET PO PRN (21:08)
[2020-12-12 00:58] VITALS: BP 110/69
[2020-12-12 08:18] VITALS: BP 120/66
[2020-12-12] MEDS: FOLIC ACID 0.4 MG TABLET PO SCH (08:32)
[2020-12-12] MEDS: MULTIVITAMINS, THERAPEUTIC TABLET PO SCH (08:33)
[2020-12-12] MEDS: BuPROPion HCL XL 150 MG ER TABLET PO SCH (08:33)
[2020-12-12] MEDS: OLANZapine 7.5 MG TABLET PO SCH ×2 (08:34→16:07)
[2020-12-12] MEDS: IBUPROFEN 400 MG TABLET PO PRN (08:35)
[2020-12-12] MEDS: THIAMINE 100 MG TABLET PO SCH ×2 (08:35→16:07)
[2020-12-12] MEDS: LORazepam 2 MG TABLET PO PRN ×2 (08:36→16:07)
[2020-12-12 16:06] VITALS: BP 115/72
[2020-12-12] MEDS: ACETAMINOPHEN 325 MG TABLET PO PRN (20:36)
[2020-12-12] MEDS: ZOLPIDEM TARTRATE 10 MG TABLET PO PRN (21:17)
[2020-12-13 00:19] VITALS: BP 122/77
[2020-12-13 04:15] VITALS: BP 125/83
[2020-12-13] MEDS: LORazepam 2 MG TABLET PO PRN ×2 (04:28→15:09)
[2020-12-13] MEDS: IBUPROFEN 400 MG TABLET PO PRN (04:28)
[2020-12-13 08:14] VITALS: BP 109/63
[2020-12-13] MEDS: FOLIC ACID 0.4 MG TABLET PO SCH (09:07)
[2020-12-13] MEDS: MULTIVITAMINS, THERAPEUTIC TABLET PO SCH (09:07)
[2020-12-13] MEDS: BuPROPion HCL XL 150 MG ER TABLET PO SCH (09:07)
[2020-12-13] MEDS: OLANZapine 7.5 MG TABLET PO SCH ×2 (09:07→17:01)
[2020-12-13] MEDS: THIAMINE 100 MG TABLET PO SCH ×2 (09:07→17:01)
[2020-12-13 16:31] VITALS: BP 127/83
[2020-12-13] MEDS: ACETAMINOPHEN 325 MG TABLET PO PRN (19:42)
[2020-12-13] MEDS: ZOLPIDEM TARTRATE 10 MG TABLET PO PRN (20:22)
[2020-12-14 00:56] VITALS: BP_SYST 118; BP_SYST 120; BP_DIAS 66; BP_DIAS 69
[2020-12-14] MEDS: HALOPERIDOL 5 MG TABLET PO PRN ×2 (01:15→11:04)
[2020-12-14] MEDS: IBUPROFEN 400 MG TABLET PO PRN ×3 (01:15→21:03)
[2020-12-14 08:21] VITALS: BP 112/61
[2020-12-14] MEDS: FOLIC ACID 0.4 MG TABLET PO SCH (08:45)
[2020-12-14] MEDS: BuPROPion HCL XL 150 MG ER TABLET PO SCH (08:45)
[2020-12-14] MEDS: THIAMINE 100 MG TABLET PO SCH ×2 (08:45→16:16)
[2020-12-14] MEDS: MULTIVITAMINS, THERAPEUTIC TABLET PO SCH (08:45)
[2020-12-14] MEDS: OLANZapine 7.5 MG TABLET PO SCH ×2 (08:45→16:16)
[2020-12-14] MEDS: METHYL SALICYLATE/MENTHOL 85 GM CREAM TP PRN (11:02)
[2020-12-14 16:22] VITALS: BP 116/69
[2020-12-15 00:43] VITALS: BP 100/60
[2020-12-15] MEDS: HALOPERIDOL 5 MG TABLET PO PRN ×2 (02:19→12:09)
[2020-12-15 08:11] VITALS: BP 108/78
[2020-12-15] MEDS: THIAMINE 100 MG TABLET PO SCH ×2 (08:26→16:41)
[2020-12-15] MEDS: FOLIC ACID 0.4 MG TABLET PO SCH (08:26)
[2020-12-15] MEDS: BuPROPion HCL XL 150 MG ER TABLET PO SCH (08:26)
[2020-12-15] MEDS: OLANZapine 7.5 MG TABLET PO SCH ×2 (08:26→16:41)
[2020-12-15] MEDS: MULTIVITAMINS, THERAPEUTIC TABLET PO SCH (08:26)
[2020-12-15] MEDS: IBUPROFEN 400 MG TABLET PO PRN ×2 (12:09→20:28)
[2020-12-15 16:04] VITALS: BP 110/61
[2020-12-15] MEDS: ACETAMINOPHEN 325 MG TABLET PO PRN (16:42)
[2020-12-15 20:27] VITALS: BP 115/75
[2020-12-16 01:09] VITALS: BP 110/82
[2020-12-16] MEDS: THIAMINE 100 MG TABLET PO SCH (08:06)
[2020-12-16] MEDS: MULTIVITAMINS, THERAPEUTIC TABLET PO SCH (08:06)
[2020-12-16] MEDS: BuPROPion HCL XL 150 MG ER TABLET PO SCH (08:06)
[2020-12-16] MEDS: FOLIC ACID 0.4 MG TABLET PO SCH (08:06)
[2020-12-16] MEDS: OLANZapine 7.5 MG TABLET PO SCH (08:07)
[2020-12-16] MEDS: IBUPROFEN 400 MG TABLET PO PRN (08:08)
[2020-12-16 08:14] VITALS: BP 132/72
[2020-12-16] MEDS ORDERED: OLAN7.5T22 PO (10:27)
== END 2020-12-16 13:15 | disposition home or self-care (01) | DRG 750 ==
LOC: B3A 12-04 00:56
PROVIDERS: ATTEND Psychiatry & Neurology Psychiatry
DX: F20.0 Paranoid schizophrenia (principal); R56.9 Unspecified convulsions; F10.20 Alcohol dependence, uncomplicated; T43.222A Poisoning by selective serotonin reuptake inhibitors, intentional self-harm, initial encounter; R10.13 Epigastric pain; Y90.9 Presence of alcohol in blood, level not specified; Y92.89 Other specified places as the place of occurrence of the external cause
CPT/HCPCS: 80048; 80053; 84439; 84443; 85025; 86001; 87081